=== PATIENT | female | born 1960 | race Caucasian/White ===

== ENCOUNTER 2017-04-28 10:41 | Emergency (ER) | payer OTHER ==
[2017-04-28 10:57] VITALS: BP 118/94; PULSE 85; TEMP 97.9; BMI 36.6
== END 2017-04-28 13:04 | disposition left against medical advice (07) ==
LOC: JER 10:41
DX: Z53.21 Procedure and treatment not carried out due to patient leaving prior to being seen by health care provider (principal)
CPT/HCPCS: 99281-25

== ENCOUNTER 2019-06-03 14:26 | Emergency (ER) | payer OTHER ==
[2019-06-03 14:35] VITALS: BP 160/83; PULSE 89; TEMP 98.6; BMI 34.1
[2019-06-03] MEDS ORDERED: ACETAMINOPHEN 325 MG TABLET (FP) PO ONE (14:57)
[2019-06-03] MEDS ORDERED: ALBUTEROL SO4 2.5/IPRATROPIUM 0.5 INH SOL 3 ML VIAL.NEB. NEB ONE ×2 (14:57→15:00)
[2019-06-03] MEDS ORDERED: guaiFENesin/D-METHORPHAN HB 10 ML UNIT-DOSE CUPS PO ONE (14:57)
[2019-06-03] MEDS ORDERED: DEXAMETHASONE LIQUID 0.5 MG/5 ML PO ONE (14:57)
[2019-06-03] MEDS ORDERED: guaiFENesin/D-METHORPHAN HB 10 ML UNIT-DOSE CUPS ONE (15:00)
[2019-06-03] MEDS ORDERED: ACETAMINOPHEN 325 MG TABLET (FP) ONE (15:00)
[2019-06-03] MEDS ORDERED: DEXAMETHASONE SOD PHOSPHATE 10 MG/1 ML VIAL ONE (15:00)
--- NOTE | 2019-06-03 15:18 | PDOC ---
History of Present Illness - General Chief Complaint: Respiratory Stated Complaint: COUGH Time Seen by Provider: 06/03/19 14:37 History Source: Patient Exam Limitations: No Limitations Past History - Travel Traveled outside of the country in the last 30 days: No Close contact w/someone who was outside of country & ill: No - Past Medical History Allergies/Adverse Reactions: Allergies Allergy/AdvReac Type Severity Reaction Status Date / Time No Known Allergies Allergy Verified 06/03/19 14:29 Home Medications: Ambulatory Orders Albuterol Sulfate Inhaler - [Ventolin HFA Inhaler -] 1 - 2 inh PO Q4H #1 inhaler 06/03/19 Azithromycin [Zithromax 250mg Tablets -] 250 mg PO UTDICT #6 tab 06/03/19 Ibuprofen 600 mg PO Q6H #30 tablet 06/03/19 Methylprednisolone [Medrol Dose Ralf] 4 mg PO ASDIR #21 tablet 06/03/19 COPD: No GI Disorders: Yes (DYSPHAGIA) - Psycho Social/Smoking Cessation Hx Smoking History: Never smoked Have you smoked in the past 12 months: Yes 'Breaking Loose' booklet given: 04/28/17 Hx Alcohol Use: No Drug/Substance Use Hx: No Substance Use Type: None Hx Substance Use Treatment: No Review of Systems - Review of Systems Able to Perform ROS?: Yes Comments:: 06/03/19 15:12 CONSTITUTIONAL: Absent: fever, chills, diaphoresis, generalized weakness, malaise, loss of appetite HEENT: Absent: rhinorrhea, nasal congestion, throat pain, throat swelling, difficulty swallowing, mouth swelling, ear pain, eye pain, visual Changes CARDIOVASCULAR: Absent: chest pain, loss of consciousness, palpitations, irregular heart rate, peripheral edema RESPIRATORY: Present: Cough, chest tightness. Absent: cough, shortness of breath, dyspnea with exertion, orthopnea, wheezing, stridor, hemoptysis SKIN: Absent: rash, itching, pallor NEUROLOGIC: Absent: headache, focal weakness or paresthesias, dizziness, unsteady gait, seizure, mental status changes, bladder or bowel incontinence PSYCHIATRIC: Absent: anxiety, depression, suicidal or homicidal ideation, hallucinations. Is the patient limited Romanian proficient: No *Physical Exam - Vital Signs Last Vital Signs Temp Pulse Resp BP Pulse Ox 98.6 F 89 18 160/83 98 06/03/19 14:33 06/03/19 14:33 06/03/19 14:33 06/03/19 14:33 06/03/19 14:33 - Physical Exam 06/03/19 15:13 GENERAL: Well developed, well nourished. Awake and alert. No acute distress. HEENT: Normocephalic, atraumatic. PERRLA, EOMI. No conjunctival pallor. Sclera are non- icteric. Moist mucous membranes. Oropharynx is clear. TMs are unremarkable bilaterally. NECK: Supple. Full ROM. No lymphadenopathy. CARDIOVASCULAR: Regular rate and rhythm. No murmurs, rubs, or gallops. Distal pulses are 2+ and symmetric. PULMONARY: No evidence of respiratory distress. Lungs clear to auscultation bilaterally. No wheezing, rales or rhonchi. SKIN: Warm and dry. Normal capillary refill. No rashes. No jaundice. NEUROLOGICAL: Alert, awake, appropriate. Cranial nerves 2-12 intact. No deficits to light touch and temperature in face, upper extremities and lower extremities. No motor deficits in the in face, upper extremities and lower extremities. Normoreflexic in the upper and lower extremities. Normal speech. Toes are down- going bilaterally. Gait is normal without ataxia. PSYCHIATRIC: Cooperative. Good eye contact. Appropriate mood and affect. ED Treatment Course - RADIOLOGY Radiology Studies Ordered: Category Date Time Status CHEST PA & LAT [RAD] Stat Radiology 06/03/19 14:56 Ordered - Medications Given in the ED: ED Medications Discontinued Medications Generic Name Dose Route Start Last Admin Trade Name Freq PRN Reason Stop Dose Admin Acetaminophen 650 mg 06/03/19 14:57 06/03/19 15:05 Tylenol - PO 06/03/19 14:58 650 mg ONCE ONE Administration Albuterol/Ipratropium 1 amp 06/03/19 14:57 06/03/19 15:05 Duoneb - NEB 06/03/19 14:58 1 amp ONCE ONE Administration Dexamethasone 10 mg 06/03/19 14:57 06/03/19 15:05 Decadron Liquid - PO 06/03/19 14:58 10 mg ONCE ONE Administration Guaifenesin 10 ml 06/03/19 14:57 06/03/19 15:05 Robitussin Dm - PO 06/03/19 14:58 10 ml ONCE ONE Administration Medical Decision Making - Medical Decision Making 06/03/19 15:19 The patient is a 58-year-old female who presents to the ER with 2 days of cough. She states that she feels short of breath and has chest tightness when she coughs. She also admits to headache. She denies fevers, sore throat, earache, nausea, vomiting and diarrhea. A/P: Cough On exam lungs are clear to auscultation bilateral without wheezes rales or rhonchi. Chest x-ray shows no acute pathology Patient does smoke hookah at least once a week. We will treat with a Z-Ralf at this time. Decadron, Robitussin and DuoNeb's given in the ER with relief of symptoms. Discharge home with supportive therapy Patient told to follow-up with her primary care doctor this week. I discussed the physical exam findings, ancillary test results and final diagnoses with the patient. I answered all of the patient's questions. The patient was satisfied with the care received and felt comfortable with the discharge plan and treatment plan. The Patient agrees to follow up with the primary care physician/specialist within 24-72 hours. Return precautions were given. Discharge - Discharge Information Problems reviewed: Yes Clinical Impression/Diagnosis: Upper respiratory infection Qualifiers: URI type: unspecified viral URI Qualified Code(s): J06.9 - Acute upper respiratory infection, unspecified Condition: Stable Disposition: HOME - Admission No - Follow up/Referral Referrals: Nick Hernandez MD [Primary Care Provider] - - Patient Discharge Instructions Patient Printed Discharge Instructions: DI for Viral Upper Respiratory Infection -- Adult Additional Instructions: You have an upper respiratory infection, or the common cold. Your EKG and chest x-ray were normal today. Please use the albuterol inhaler every 4 hours as needed for shortness of breath or chest tightness. Take the steroids as directed starting tomorrow. You received your first dose in the ER today. Take the Z-Ralf as directed. This is an antibiotic. Please take Motrin 600 mg every 6 hours as needed for pain not to exceed 3000 mg a day. Drink plenty of fluids. Cough drops and warm tea may help your symptoms as well. Please follow up with her primary care doctor this week. Return to the emergency department if you have difficulty breathing, shortness of breath, worsening pain, nausea, vomiting or if you have any changes in your symptoms. - Post Discharge Activity Work/Back to School Note: Back to Work
--- NOTE | 2019-06-03 16:10 | EKG ---
Test Reason : Blood Pressure : / mmHG Vent. Rate : 077 BPM Atrial Rate : 077 BPM P-R Int : 166 ms QRS Dur : 086 ms QT Int : 406 ms P-R-T Axes : 054 032 048 degrees QTc Int : 459 ms NORMAL SINUS RHYTHM POSSIBLE LEFT ATRIAL ENLARGEMENT BORDERLINE ECG WHEN COMPARED WITH ECG OF 09-AUG-2015 12:26, NO SIGNIFICANT CHANGE WAS FOUND Confirmed by WAQAS BOYKIN MD ([id number]) on 06/03/2019 4:09:41 PM Referred By: Confirmed By:WAQAS BOYKIN MD
== END 2019-06-03 15:40 | disposition home or self-care (01) ==
LOC: JERFT 14:26
PROC: 3E0F7GC Introduction of Other Therapeutic Substance into Respiratory Tract, Via Natural or Artificial Opening (ICD-10-PCS; principal; 2019-06-03)
DX: J06.9 Acute upper respiratory infection, unspecified (principal)
CPT/HCPCS: 71046-TC-FY; 93005; 93010; 94640; 99285-25